=== PATIENT | female | born 1960 | race Two or more races ===

== ENCOUNTER → 2024-09-21 | Outpatient (CLI) | payer MEDICAID, SELFPAY ==
--- NOTE | 2024-09-21 14:30 | XR_ITS ---
Examination: CT chest, without intravenous contrast. Sagittal and coronal 2-D reconstructions. Exam date and time: September 21, 2024 1422 hours INDICATIONS: Post Covid 19 infection 2020 with chronic shortness of breath CTDI:vol (mGy) 9.79 DLP: (mGycm) 340 Technique: Multiple 3.0 mm axial sections of the chest to been obtained. Bone and lung density settings are obtained. Sagittal and coronal 2-D reconstructions have been obtained. Low dose protocols were performed. One or more of the following dose reduction techniques were used; automated exposure control, adjustment of the mA and/or KV according to patient size, use of iterative reconstruction technique. Findings: No thoracic aortic aneurysm dilatation Pulmonary artery segments are not enlarged. No paratracheal tracheobronchial or bronchopulmonary adenopathy. No pneumonia pulmonary edema or pleural disease or pulmonary fibrosis 2 mm pulmonary nodule pleural-based right upper lobe No visualized liver or splenic lesion IMPRESSION: No pneumonia or pulmonary edema pleural disease or pulmonary fibrosis Recommend 1 additional 6 month follow-up CT chest without contrast to document stability of 2 mm pulmonary nodule right upper lobe
== END | disposition home or self-care (01) ==
PROVIDERS: PCP Nurse Practitioner Family; Referring Provider Internal Medicine; Visit Provider Internal Medicine
DX: R91.1 Solitary pulmonary nodule (principal); U09.9 Post COVID-19 condition, unspecified
CPT/HCPCS: 71250